=== PATIENT | male | born 1940 | race Caucasian/White ===

== ENCOUNTER 2018-12-12 15:53 | Inpatient (IN) | payer MEDICARE ==
[~2018-12-12] VITALS: Ht 175.3 cm; Wt 59.7 kg
--- NOTE | 2018-12-12 16:15 | NUR ---
ADMITTED TO [facility] FROM HOME. ACCOMPANIED WITH . PATIENT HAS FRONTAL LOBE DEMENTIA. HAS CARED FOR PATIENT AT HOME FOR 4 YEARS. HE HAS BEEN EATING HIS FECES AND DAYCARE WANT LET HIM COME BACK. HE NEEDS PLACEMENT. IS WANTING i[employer]ged AFTER MARGI. CODE STATUS IS FULL CODE. CODE WORD= MARIA DEL CARMEN. WILL CONTINUE TO MONITOR.
[2018-12-12] MEDS ORDERED: COZAAR25 MG PO (20:11)
[2018-12-12] MEDS ORDERED: MAGNESIUM OXID420 MG PO ×2 (20:12→20:13)
[2018-12-12] MEDS ORDERED: SEROQUEL100 MG PO (20:14)
[2018-12-12] MEDS ORDERED: TRAZODONE HCL150 MG PO (20:17)
[2018-12-12] MEDS ORDERED: VITAMIN D5000 UNIT PO (21:10)
[2018-12-12] MEDS ORDERED: ZOLOFT100 MG PO (21:10)
[2018-12-12] MEDS ORDERED: RED YEAST RICE600 MG PO (21:11)
[2018-12-12] MEDS ORDERED: COENZYME Q10200 MG PO (21:11)
[2018-12-12 21:24] VITALS: BP 144/80; BMI 19.2
--- NOTE | 2018-12-12 23:45 | NUR ---
RECEIVED IN HALLWAY OUTSIDE OF NURSES STATION. VERY CONFUSED. WANDERING AROUND. CALM AND COOPERATIVE WITH ADMISSION ASSESSMENT. ATTEMPTING TO EAT FECES. REDIRECT AND REORIENT NEEDED. RESTING IN BED WITH EYES CLOSED AT THIS TIME. CONTINUE PLAN OF CARE.
[2018-12-13 07:13] LABS: BASOPHILS 0.1 % (0-2); EOSINOPHILS 2.3 % (0-7); HEMATOCRIT 40.3 % (36.0-48.0); HEMOGLOBIN 13.9 g/dL (12-16); IMMATURE GRANULOCYTES 0.1 % (0-5); LYMPHOCYTES 18.6 % (15-50); MCH 31.5 pg (26.0-34.0); MCHC 34.5 g/dL (31.0-37.0); MCV 91.4 fL (80.0-100.0); MEAN PLATELET VOLUME 9.4 fL (7.4-10.4); MONOCYTES 7.8 % (2-11); NEUTROPHILS 71.1 % (40-80); PLATELET COUNT 359 10x3/uL (130-400); RBC 4.41 10x6/uL (4.00-5.40); RDW 12.9 % (11.5-14.5); WBC 8.2 10x3/uL (4.8-10.8)
[2018-12-13 07:40] LABS: ALBUMIN 3.6 g/dL (3.4-5.0); ANION GAP 10.3 mmol/L (8-16); BILIRUBIN - TOTAL 0.48 mg/dL (0.2-1.3); CALCIUM 8.5 mg/dL (8.5-10.1); CARBON DIOXIDE 29.1 mmol/L (21.0-32.0); CHOL - HDL RATIO 3.1 ratio (2.3-4.1); CREATININE - SERUM 0.9 mg/dL (0.6-1.3); POTASSIUM - SERUM 3.4 mmol/L (3.5-5.1); PROTEIN - SERUM 7.2 g/dL (6.4-8.2); THYROID STIMULATING HORMONE 3.23 uIU/mL (0.36-3.74)
[2018-12-13 09:00] VITALS: BP 168/69
--- NOTE | 2018-12-13 09:50 | NUR ---
PT IS ALERT AND ORIENTED TO PERSON ONLY. PT IS VERY CONFUSED. CALM AND COOPERATIVE WITH ASSESSMENT. MED COMPLIANT. REDIRECT AND REORIENT NEEDED. FALL PRECAUTIONS IN PLACE. WILL CPOC.
[2018-12-13 11:10] VITALS: BMI 19.2
[2018-12-13 16:30] VITALS: Ht 175.3 cm; Wt 59.7 kg
[2018-12-13 20:00] VITALS: BP 131/62
--- NOTE | 2018-12-13 21:15 | NUR ---
RECEIVED IN DAYROOM. WALKING ABOUT. VERY CONFUSED. CALM AND COOPERQATIVE WITH CARE AND ASSESSMENT. ENCOURAGE TO EXPRESS NEEDS. CONTINUES TO WALK ABOUT DAY AND DINING AREA. CONTINUE PLAN OF CARE.
--- NOTE | 2018-12-14 07:50 | NUR ---
REC'D PT PACING IN HALLWAY BY NURSES STATION. RESP EVEN AND NONLABORED. NO ACUTE DISTRESS NOTED. PATIENT IS MED COMPLIANT. NO BEHAVIORS NOTED. PT IS ALERT ONLY TO SELF. WANDERS AT TIMES. PRECAUTIONS TAKEN TO PREVENT PT FROM CONTINUE HABIT OF BEHAVIORS. WILL CONT PLAN OF CARE.
[2018-12-14 08:37] VITALS: BP 141/83
[2018-12-14 13:15] LABS: FOLATE (FOLIC ACID) - SERUM 13.4 ng/mL (>3.0)
--- NOTE | 2018-12-14 15:03 | PSY ---
PATIENT NAME:ETHAN AYALA MEDICAL RECORD: [id number] : 40 LOCATION:[facility] ADMISSION DATE: 12/12/18 ACCOUNT: [id number] PSYCHIATRIC EVALUATION DATE OF EVALUATION: 12/13/18 IDENTIFYING DATA: The patient is 78 years old and he is admitted to the hospital on a voluntary basis. CHIEF COMPLAINT: Bizarre behavior. HISTORY OF PRESENT ILLNESS: The patient has a known established diagnosis of dementia. Unfortunately, he is very advanced and he has been eating his own excrement. This apparently has been going on for some time. He constantly is putting his hands in his pants and when he is taken to the toilet, he must be stopped from reaching into the toilet to consume the excrement. He has been [place] from the day treatment program for Alzheimer's patients [place] because of his behavior. The called the primary care physician, primary care physician told her to call us. The patient is not interviewable. He only answers questions yes or no and that is inconsistent. Interestingly, he follows directions reasonably well. He can show me 2 fingers, raise his right hand, tap his feet, show me his ear, stand up, sit down, open his mouth, close his eyes, but when asked questions such as how do you feel, he is perplexed and cannot answer. When asked a simple question such as, "are you in any pain," he does not answer. Some questions he will answer yes or no to, but is not even consistently yes or no. PAST MEDICAL HISTORY: Significant for diagnosis of frontotemporal dementia. He also has a history of hypertension. PAST PSYCHIATRIC HISTORY: None. FAMILY HISTORY: Unknown. ALLERGIES: No known drug allergies. CURRENT MEDICATIONS: Include sertraline, Cozaar, Seroquel, and Desyrel. SOCIAL HISTORY: The patient is . He has an adult son. There is nothing known about his longitudinal history or at this point at least he can give me no useful information about his longitudinal history. MENTAL STATUS EXAMINATION: The patient is oriented to person only. He cannot answer questions, but can follow directions as described above. His memory, concentration, and abstraction abilities are all deemed to be severely impaired. His mood is flat. His affect is constricted. He has not been aggressive, but cannot answer questions about psychotic symptoms or homicidal or suicidal thoughts. ASSETS: Supportive family members. LIABILITIES: Limited insight. DIAGNOSTIC IMPRESSION: AXIS I: 1. Frontotemporal dementia. 2. Pica disorder. AXIS II: Deferred. AXIS III: Hypertension. AXIS IV: Moderate. AXIS V: Global assessment of functioning is 10. PLAN: At this time, the patient is severely impaired. He has not been aggressive. Obviously, the behaviors described are problematic from a long-term care management standpoint. At this point, I am going to continue him on current medications. TRANSINT:[id number] Voice Confirmation ID: [id number] DOCUMENT ID: [id number] PRADIP SCHWARTZ MD at 1503 CC: [id number] DICTATION DATE: 12/13/18 1547 UNIVERSITY MANAGER: 12/13/18 1630 ADM IN [facility] [address] [place] [address]
--- NOTE | 2018-12-14 18:08 | NUR ---
PATIENT SITTING IN CHAIR WITH EYES OPEN. RESP EVEN AND NONLABORED. NO ACUTE DISTRESS NOTED. CONFUSION NOTED. PT ORIENTED TO SELF ONLY. PT ANSWERS YES OR NO QUESTIONS. PT AMBULATES. BEHAVIORS NOTED. PT INGESTS FECAL MATTER FROM HAND AT TIMES. ATTEMPT TO REDIRECT FROM BEHAVIORS. UNABLE TO REDIRECT. OVERALL DONNED TO ATTEMPT TO REDIRECT BEHAVIORS. MED COMPLIANT. WILL CONT PLAN OF CARE.
[2018-12-14 20:00] VITALS: BP 195/88
--- NOTE | 2018-12-14 20:42 | NUR ---
PT. IS VERY CONFUSED. ONLY ANSWERS YES OR NO. HAS TO BE CARED FOR REGARDING ADL'S. NO AGGRESSION NOTED. COMPLIANT WITH MEDS.
--- NOTE | 2018-12-15 07:30 | NUR ---
REC'D PATIENT SITTING IN CHAIR IN HALLWAY AWAITING BREAKFAST. RESP EVEN AND NONLABORED. NO ACUTE DISTRESS NOTED. PT CAN BE NONVERBAL WITH STAFF. CONFUSION NOTED. ORIENTED TO SELF. WILL CONT PLAN OF CARE.
[2018-12-15 09:26] VITALS: BP 164/88
--- NOTE | 2018-12-15 15:53 | PN ---
PATIENT:ETHAN AYALA MEDICAL RECORD: [id number] LOCATION:[facility] ADMISSION DATE: 12/12/18 PROGRESS NOTE DATE OF SERVICE: 12/14/2018 SUBJECTIVE: The patient's case was discussed with staff. He has no new complaint. OBJECTIVE: The patient continues to engage in the behavior that brought him here. He is constantly having his hands in his pants. We tried him in a jumpsuit that zips up the front, but he is able to unzip it and reach his rectum. He is basically 1:1. He can follow simple instructions, but does not answer any questions. ASSESSMENT: Frontal lobe dementia. PLAN: At this time, the patient will be maintained on current medicines. I think the solution is going to be environmental and not pharmacologic. I am going to see if perhaps we can sew the pocket shut on the jumpsuit and arrange it so that it cannot be unzipped easily. TRANSINT:[id number] Voice Confirmation ID: [id number] DOCUMENT ID: [id number] PRADIP CSHWARTZ MD at 1553 CC: [id number] DICTATION DATE: 12/14/18 1617 ELECTRONIC TRANSACTION IMPLEMENTER: 12/14/18 1728 ADM IN [place] [id number] [place] [address]
[2018-12-15 20:03] VITALS: BP 186/73
--- NOTE | 2018-12-15 20:53 | NUR ---
PATIENT IS CONFUSED, DOES NOT SPEAK, HAS TO BE LEAD AROUND, COMPLIANT WITH MEDS(CRUSHED), NO ADVERSE REACTION NOTED. WILL FOLLOW POC
--- NOTE | 2018-12-16 08:45 | NUR ---
REC'D PATIENT SITTING IN CHAIR IN HALLWAY. RESP EVEN AND NONLABORED. NO ACUTE DISTRESS NOTED. PT IS NONVERBAL BUT CAN SPEAK. MED COMPLIANT. NEEDS ASSISTANCE WITH ADLS. WILL CONT PLAN OF CARE.
--- NOTE | 2018-12-16 11:29 | PN ---
PATIENT:ETHAN AYALA MEDICAL RECORD: [id number] LOCATION:[facility] ADMISSION DATE: 12/12/18 PROGRESS NOTE DATE OF SERVICE: 12/15/2018 SUBJECTIVE: The patient's case was discussed with staff. He has no new complaint. OBJECTIVE: The patient is still placing his hand in his rectum and then in his mouth. He has had no other behavior problems. ASSESSMENT: Frontal lobe dementia. PLAN: Current medications have been reviewed. I think the patient is not in need of pharmacologic intervention, but behavioral. Because of his impairment, he is not able to learn from events or to follow complicated instructions. Currently, he is wearing a 1 pieces zippered jumpsuit that is on backward. Unfortunately, the pocket is open and he can reach his hand through it and into his rectum between his thigh and underwear. I am going to have the pocket sewn shut and I think that will be the solution. TRANSINT:[id number] Voice Confirmation ID: [id number] DOCUMENT ID: [id number] PRADIP SCHWARTZ MD at 1129 CC: [id number] DICTATION DATE: 12/15/[address] LIGHT WIRER: 12/15/18 2136 ADM IN [facility] [address] [place] [address]
[2018-12-16 11:51] VITALS: BP 117/81
--- NOTE | 2018-12-16 19:00 | NUR ---
PATIENT SITTING IN CHAIR IN DAY AREA. RESP EVEN AND NONLABORED. NO ACUTE DISTRESS NOTED. EATS WELL AT MEALS. PT ATTEMPTS TO HAVE SOME BEHAVIORS. MED COMPLIANT. WILL CONT PLAN OF CARE.
[2018-12-16 20:42] VITALS: BP 177/99
--- NOTE | 2018-12-16 21:10 | NUR ---
PT. IS CONFUSED, HAS TO BE DIRECTED WITH EVERYTHING, COMPLIANT WITH MEDS(CRUSHED). QUIET, STAYS TO HIMSELF. WILL FOLLOW POC
[2018-12-17 07:00] VITALS: BP 165/80
--- NOTE | 2018-12-17 08:25 | NUR ---
REC'D PATIENT SITTING AT DINING AREA TABLE. PT IS NONVERBAL WITH STAFF AT TIMES. CAN SPEAK SMALL PHRASES. NO ACUTE DISTRESS NOTED. INCONTINET. MED COMPLIANT. WILL ASSIST WITH ADLS. WILL CONT PLAN OF CARE.
--- NOTE | 2018-12-17 11:20 | NUR ---
THIS NURSE SPOKE WITH . STATED "WELL I WAS UNDER THE IMPRESSION THAT HE WOULD BE IN [facility] [place] ON TUESDAY. ALL HIS CHILDREN ARE FLYING IN TO SEE HIM FROM 3 DIFFERENT [place]. IF HE IS STILL THERE ON TUESDAY. HOW ARE THEY GOING TO SEE HIM?" THIS NURSE ATTEMPTED TO EXPLAIN VISITATION TIMES STATED "I KNOW ALL THAT. I WANT TO KNOW IF THEY CAN SEE HIM ON YOUR UNIT OR NOT." THIS NURSE EXPLAINED SHE WOULD HAVE TO SPEAK WITH FACER OPERATOR ON TUESDAY FOR CLARIFICATION IF THEY CAN VISIT ON A NONSCHEDULE DAY. VERBALIZIED UNDERSTANDING AND THANKED NURSE.
--- NOTE | 2018-12-17 12:15 | PN ---
PATIENT:ETHAN AYALA MEDICAL RECORD: [id number] LOCATION:[facility] ADMISSION DATE: 12/12/18 PROGRESS NOTE DATE OF SERVICE: 12/16/2018 SUBJECTIVE: The patient's case was discussed with staff. He has no new complaint. OBJECTIVE: The patient is in good behavioral control with the exception of his pica disorder. ASSESSMENT: Frontal lobe dementia. PLAN: Current medicines have been reviewed and will be maintained. Long-term prognosis is guarded. TRANSINT:[id number] Voice Confirmation ID: [id number] DOCUMENT ID: [id number] PRADIP SCHWARTZ MD at 1215 CC: [id number] DICTATION DATE: 12/16/18 1259 PAID SEARCH SPECIALIST: 12/16/18 1346 ADM IN [place] [address] [place] [address]
--- NOTE | 2018-12-18 00:31 | NUR ---
PATIENT IS EXTREMLY CONFUSED, HAS TO BE DIRECTED AND REDIRECTED. NEEDS HELP WITH ADL'S, CAN FEED HIMSELF, DOES NOT SPEAK, NON COMPLIANT WITH MEDS TONIGHT. WILL FOLLOW POC
[2018-12-18 07:00] VITALS: BP 170/90
--- NOTE | 2018-12-18 07:30 | NUR ---
REC'D PT SITTING IN CHAIR BY NURSES STATION. PT IS VERY CONFUSED. PT UNABLE TO MAKE NEEDS KNOWN TO STAFF. PT IS MUTE. PT CALM AND COOPERATIVE WITH ASSESSMENT AT THSI TIME. MED COMPLIANT. REDIRECT AND REORIENT NEEDED. FALL PRECAUTIONS IN PLACE. WILL CPOC.
--- NOTE | 2018-12-18 14:32 | PN ---
PATIENT:ETHAN AYALA MEDICAL RECORD: [id number] LOCATION:[facility] ADMISSION DATE: 12/12/18 PROGRESS NOTE DATE OF SERVICE: 12/17/2018 SUBJECTIVE: The patient's case was discussed with staff. He has no new complaint. OBJECTIVE: The patient is disorganized with poor insight about his condition. He tolerates his medicines well. ASSESSMENT: Frontal lobe dementia. PLAN: Current medicines will be maintained. I anticipate he could be transitioned out of the hospital soon. TRANSINT:[id number] Voice Confirmation ID: [id number] DOCUMENT ID: [id number] PRADIP SCHWARTZ MD at 1432 CC: [id number] DICTATION DATE: 12/17/18 1257 CHILD PSYCHOLOGY TEACHER: 12/17/18 1442 ADM IN [place] [address] [place] [address]
[2018-12-18 20:00] VITALS: BP 193/100
--- NOTE | 2018-12-18 20:54 | NUR ---
RECEIVED IN DAYROOM. SITTING IN A CHAIR WITH PEERS AT HIS SIDE. CALM AND COOPERATIVE WITH CARE AND ASSESSMENT. NO SIGNS OF AGGRESSION. REDIRECT AND REORIENT NEEDED. SITTING CALMLY AT THIS TIME. CONTINUE PLAN OF CARE
[2018-12-19 08:30] VITALS: BP 164/80
--- NOTE | 2018-12-19 11:47 | NUR ---
STANDING IN DAYROOM, AWAITING TRANSPORT TO LTC FACILITY. ALERT, CONFUSED, CALM. COMPLIANT WITH MEDS. COOPERATIVE WITH GROUP THERAPY, REDIRECTS EASILY. DISCHARGE PLANS FOR THIS MORNING.
--- NOTE | 2018-12-19 11:55 | NUR ---
PERSONAL BELONGINGS RETURNED TO PATIENT, ASSISTED TO EXIT DOOR, ACCOMPANIED BY [facility] STAFF. DISCHARGED FROM UNIT IN C/O [facility] STAFF. DENIES PAIN, NO S/S DISTRESS.
--- NOTE | 2018-12-19 13:17 | PN ---
PATIENT:ETHAN AYALA MEDICAL RECORD: [id number] [facility] ADMISSION DATE: 12/12/18 PROGRESS NOTE DATE OF SERVICE: 12/18/2018 SUBJECTIVE: The patient's case was discussed with staff. He has no new complaint. OBJECTIVE: The patient is severely impaired cognitively. He is going to be maintained on current medicines. Arrangements for his discharge were not possible today. He will be discharged tomorrow. TRANSINT:[id number] Voice Confirmation ID: [id number] DOCUMENT ID: [id number] PRADIP SCHWARTZ MD at 1317 CC: [id number] DICTATION DATE: 12/18/18 1626 MAGNETIC LOCATER: 12/18/18 191 ADM IN [facility] [address] [place] [address]
--- NOTE | 2018-12-20 13:27 | PN ---
PATIENT:ETHAN AYALA MEDICAL RECORD: [id number] LOCATION:[facility] ADMISSION DATE: 12/12/18 PROGRESS NOTE DATE OF SERVICE: 12/19/2018 SUBJECTIVE: The patient's case was discussed with staff. He has no new complaint. OBJECTIVE: The patient denies intent to harm himself or others. He does tolerate his medicines well. ASSESSMENT: Frontal lobe dementia. PLAN: The patient will be transitioned out of the hospital today. Followup will be with his fpc physician. TRANSINT:[id number] Voice Confirmation ID: [id number] DOCUMENT ID: [id number] PRADIP SCHWARTZ MD at 1327 CC: [id number] DICTATION DATE: 12/19/18 1344 CHEMICAL PUMPER: 12/19/18 1414 DIS IN 12/19/18 [facility] [address] [place] [address]
== END 2018-12-19 11:55 | DRG 57 ==
LOC: D.PSYCH 15:53 → EDSEX 16:18 → D.PSYCH 12-19 11:55
PROVIDERS: ADMIT Psychiatry & Neurology Psychiatry; ATTEND Psychiatry & Neurology Psychiatry
DX: G31.09 Other frontotemporal neurocognitive disorder (principal); F02.81 Dementia in other diseases classified elsewhere, unspecified severity, with behavioral disturbance; Z68.1 Body mass index [BMI] 19.9 or less, adult; F50.89 Other specified eating disorder; I10 Essential (primary) hypertension; E55.9 Vitamin D deficiency, unspecified

== ENCOUNTER 2019-02-15 08:42 | Emergency (ER) | payer MEDICARE, MEDICAID ==
[~2019-02-15] VITALS: Ht 175.3 cm; Wt 72.7 kg
[~2019-02-15 08:42] MED LIST: COENZYME Q10200 MG PO; COZAAR25 MG PO; MAGNESIUM OXID420 MG PO; RED YEAST RICE600 MG PO; SEROQUEL100 MG PO; TRAZODONE HCL150 MG PO; VITAMIN D5000 UNIT PO; ZOLOFT100 MG PO
[2019-02-15 08:46] VITALS: Ht 175.3 cm; Wt 72.7 kg
[2019-02-15] MEDS ORDERED: NORVASC5 MG PO (08:49)
[2019-02-15] MEDS ORDERED: DEPAKOTE125 MG PO (08:49)
[2019-02-15] MEDS ORDERED: HYDROCHLOROTH12.5 M1 PO (08:50)
[2019-02-15] MEDS ORDERED: [UNRECOGNIZED DRUG - OTHER] (08:51)
[2019-02-15] MEDS ORDERED: VITAMIN D5000 UNIT PO (08:52)
[2019-02-15 11:44] VITALS: BP 169/67
== END 2019-02-15 11:45 | disposition home or self-care (01) ==
LOC: D.ER 08:42
DX: S09.90XA Unspecified injury of head, initial encounter (principal); W19.XXXA Unspecified fall, initial encounter; I10 Essential (primary) hypertension; R47.01 Aphasia